=== PATIENT | male | born 1985 | race Caucasian/White ===

== ENCOUNTER 2023-08-01 12:28 | Inpatient (IN) | payer MEDICAID, OTHER ==
[~2023-08-01] VITALS: Ht 185.4 cm; Wt 73.7 kg
[2023-08-01] MEDS: SODIUM CHLORIDE 0.9% 1,000 ML IV ONE ×2 (13:15→22:00)
[2023-08-01 13:51] LABS: Alanine Aminotransferase 20 U/L (7-40); Alkaline Phosphatase 68 U/L (46-116); Anion Gap 11 (5-15); Aspartate Aminotransferase 13 U/L (13-40); BUN/Creatinine Ratio 14.2 (10.0-20.0); Bilirubin, Total 0.6 mg/dL (0.2-1.0); Blood Urea Nitrogen 15 mg/dL (9-23); Calcium 10.1 mg/dL (8.7-10.4); Carbon Dioxide 23 mmol/L (20-30); Chloride 104 mmol/L (98-107); Glucose 88 mg/dL (74-106); Potassium 4.3 mmol/L (3.5-5.1); Sodium 138 mmol/L (136-145); Total Protein 7.4 g/dL (5.7-8.2)
[2023-08-01 13:52] LABS: Basophils # (auto) 0 10 ^3/uL (0-0.2); Basophils % (auto) 0.3 % (0.0-2.0); Eosinophils # (auto) 0.1 10 ^3/uL (0-0.8); Eosinophils % (auto) 0.5 % (0.0-7.0); Hematocrit 47.3 % (41.0-53.0); Hemoglobin 16.1 g/dL (13.5-17.5); Lymphocytes # (auto) 1.4 10 ^3/uL (0.4-5.4); Lymphocytes % (auto) 12.4 % (10.0-50.0); Mean Corpuscular Volume 90.9 fL (80.0-100.0); Monocytes # (auto) 0.9 10 ^3/uL (0-1.3); Monocytes % (auto) 8.2 % (0.0-12.0); Neutrophils # (auto) 8.6 10 ^3/uL (1.6-8.6); Neutrophils % (auto) 78.6 % (37.0-80.0); Red Blood Cells 5.21 10^6/uL (4.5-5.90); Red Cell Distribution Width 13.2 % (11.8-14.3)
[2023-08-01] MEDS: ONDANSETRON HCL 4 MG/2 ML VIAL IV ONE (21:58)
[2023-08-01 22:08] LABS: Amphetamine Screen, Urine Neg (NEGATIVE); Barbiturate Scree,Urine Neg (NEGATIVE); Benzodiazephine Screen, Urine Neg (NEGATIVE); Cannabinoid Screen, Urine Pos (NEGATIVE); Cocaine Screen, Urine Neg (NEGATIVE); Opiate Scree,Urine Neg (NEGATIVE); Phencyclidine Screen, Urine Neg (NEGATIVE)
[2023-08-01] MEDS ORDERED: ACETAMINOPHEN 325 MG TAB PO PRN (23:00)
[2023-08-01] MEDS: SODIUM CHLORIDE 0.9% 1,000 ML IV SCH (23:00)
[2023-08-01] MEDS ORDERED: DOCUSATE SOD 100 MG CAP PO PRN (23:00)
[2023-08-02] MEDS ORDERED: MORPHINE SULFATE INJ 2 MG/ml SYRG IV PRN
[2023-08-02] MEDS ORDERED: NITROGLYCERIN 0.4 MG SL TAB SL PRN
[2023-08-02] MEDS: MORPHINE SULFATE INJ 2 MG/ml SYRG IV PRN (00:46)
[2023-08-02] MEDS: MORPHINE SULFATE 4 MG/ML SYR/VIAL IV ONE (00:47)
[2023-08-02] MEDS: DONNATAL 5ml ORAL Elix (BELLADONNA ALK-PHENOBARB) PO ONE (04:30)
[2023-08-02] MEDS: MAALOX PLUS or MAALOX 30 ML PO ONE (04:30)
[2023-08-02] MEDS: LIDOCAINE VISCOUS 2% 15ML UD PO ONE (04:30)
[2023-08-02 04:47] LABS: Alanine Aminotransferase 17 U/L (7-40); Albumin 4.3 g/dL (3.2-4.8); Alkaline Phosphatase 57 U/L (46-116); Anion Gap 9 (5-15); Aspartate Aminotransferase 11 U/L (13-40); BUN/Creatinine Ratio 11.2 (10.0-20.0); Bilirubin, Total 0.6 mg/dL (0.2-1.0); Blood Urea Nitrogen 11 mg/dL (9-23); Calcium 9.1 mg/dL (8.7-10.4); Carbon Dioxide 25 mmol/L (20-30); Chloride 108 mmol/L (98-107); Glucose 99 mg/dL (74-106); Potassium 4.4 mmol/L (3.5-5.1); Sodium 142 mmol/L (136-145); Total Protein 6.5 g/dL (5.7-8.2)
[2023-08-02 04:52] LABS: Basophils # (auto) 0 10 ^3/uL (0-0.2); Basophils % (auto) 0.4 % (0.0-2.0); Eosinophils # (auto) 0.1 10 ^3/uL (0-0.8); Eosinophils % (auto) 1.8 % (0.0-7.0); Hematocrit 42.1 % (41.0-53.0); Hemoglobin 14.6 g/dL (13.5-17.5); Lymphocytes # (auto) 1.7 10 ^3/uL (0.4-5.4); Lymphocytes % (auto) 21.2 % (10.0-50.0); Mean Corpuscular Hemoglobin 31.5 pg (28.0-32.0); Mean Corpuscular Hgb Conc. 34.6 g/dL (32.0-36.0); Monocytes # (auto) 0.9 10 ^3/uL (0-1.3); Monocytes % (auto) 11.3 % (0.0-12.0); Neutrophils # (auto) 5.1 10 ^3/uL (1.6-8.6); Neutrophils % (auto) 65.3 % (37.0-80.0); Nucleated Red Blood Cells % 0.1 %; Red Blood Cells 4.62 10^6/uL (4.5-5.90); Red Cell Distribution Width 13.2 % (11.8-14.3); White Blood Cell 7.8 10^3/uL (4.4-10.8)
[2023-08-02 08:43] VITALS: BP 103/55; PULSE 68; RESP 18; TEMP 98.2; O2SAT 98
[2023-08-02] MEDS: ONDANSETRON HCL 4 MG/2 ML VIAL IV PRN (08:49)
[2023-08-02 09:00] VITALS: BP 103/55; PULSE 68; RESP 18; TEMP 98.2; O2SAT 98
[2023-08-02] MEDS: levoFLOXacin 500MG 100 ML IV SCH (12:39)
[2023-08-02] MEDS ORDERED: TRAZ-228 PO (12:40)
[2023-08-02] MEDS ORDERED: PROM25TA10 PO (12:40)
[2023-08-02] MEDS ORDERED: PANT40TA2 PO (12:40)
[2023-08-02] MEDS ORDERED: LORA-1121 PO (12:40)
[2023-08-02 13:00] VITALS: BP 100/48; PULSE 56; RESP 15; TEMP 98.2; O2SAT 98
[2023-08-02] MEDS: metroNIDAZOLE 500MG/100ML 100 ML IV SCH (14:21)
[2023-08-02 17:00] VITALS: BP 107/57; PULSE 71; RESP 17; TEMP 98; O2SAT 98
[2023-08-02] MEDS: HYDROcodone-ACET 5/325MG TAB PO PRN (20:30)
[2023-08-02 21:00] VITALS: BP 99/62; PULSE 56; RESP 18; TEMP 98.1; O2SAT 99
[2023-08-03] VITALS (7 sets, daily range): BP systolic 104–133; BP diastolic 7–90; PULSE 57–72; RESP 18–23; TEMP 97.1–99.1; O2SAT 90–100
[2023-08-03 06:26] LABS: Anion Gap 8 (5-15); Carbon Dioxide 25 mmol/L (20-30); Chloride 107 mmol/L (98-107); Potassium 4.5 mmol/L (3.5-5.1); Sodium 140 mmol/L (136-145)
[2023-08-03 06:27] LABS: Calcium 9.3 mg/dL (8.7-10.4)
[2023-08-03 06:31] LABS: Basophils # (auto) 0 10 ^3/uL (0-0.2); Basophils % (auto) 0.6 % (0.0-2.0); Eosinophils # (auto) 0.3 10 ^3/uL (0-0.8); Hematocrit 43.8 % (41.0-53.0); Hemoglobin 15.1 g/dL (13.5-17.5); Lymphocytes # (auto) 1.7 10 ^3/uL (0.4-5.4); Lymphocytes % (auto) 22.7 % (10.0-50.0); Mean Corpuscular Hemoglobin 31.5 pg (28.0-32.0); Mean Corpuscular Hgb Conc. 34.6 g/dL (32.0-36.0); Mean Corpuscular Volume 91.1 fL (80.0-100.0); Neutrophils # (auto) 4.5 10 ^3/uL (1.6-8.6); Neutrophils % (auto) 59.7 % (37.0-80.0); Nucleated Red Blood Cells % 0.2 %; Red Blood Cells 4.81 10^6/uL (4.5-5.90); Red Cell Distribution Width 13.1 % (11.8-14.3); White Blood Cell 7.6 10^3/uL (4.4-10.8)
[2023-08-03 06:33] LABS: BUN/Creatinine Ratio 6.4 (10.0-20.0); Blood Urea Nitrogen 6 mg/dL (9-23); Glucose 83 mg/dL (74-106)
[2023-08-03] MEDS: LORazepam 0.5 MG TAB PO PRN (11:33)
[2023-08-03] MEDS ORDERED: MAALOX PLUS or MAALOX 30 ML PO PRN (14:30)
[2023-08-03] MEDS: MAALOX PLUS or MAALOX 30 ML PO ONE (14:45)
[2023-08-03] MEDS: PANTOPRAZOLE 40 MG TAB PO ONE (14:45)
[2023-08-04] VITALS (9 sets, daily range): BP systolic 91–106; BP diastolic 51–59; PULSE 54–65; RESP 18–20; TEMP 97.4–97.9; O2SAT 97–100
[2023-08-04 06:07] LABS: Basophils # (auto) 0 10 ^3/uL (0-0.2); Basophils % (auto) 0.6 % (0.0-2.0); Eosinophils # (auto) 0.3 10 ^3/uL (0-0.8); Eosinophils % (auto) 4.5 % (0.0-7.0); Hemoglobin 14.3 g/dL (13.5-17.5); Lymphocytes # (auto) 1.7 10 ^3/uL (0.4-5.4); Lymphocytes % (auto) 29.3 % (10.0-50.0); Mean Corpuscular Hemoglobin 30.8 pg (28.0-32.0); Mean Corpuscular Volume 90.4 fL (80.0-100.0); Monocytes # (auto) 0.9 10 ^3/uL (0-1.3); Monocytes % (auto) 15.3 % (0.0-12.0); Neutrophils # (auto) 2.9 10 ^3/uL (1.6-8.6); Neutrophils % (auto) 50.3 % (37.0-80.0); Nucleated Red Blood Cells % 0.1 %; Red Blood Cells 4.64 10^6/uL (4.5-5.90); Red Cell Distribution Width 12.7 % (11.8-14.3); White Blood Cell 5.8 10^3/uL (4.4-10.8)
[2023-08-04 06:12] LABS: Chloride 107 mmol/L (98-107); Potassium 3.8 mmol/L (3.5-5.1); Sodium 139 mmol/L (136-145)
[2023-08-04 06:13] LABS: Anion Gap 7 (5-15); Carbon Dioxide 25 mmol/L (20-30)
[2023-08-04 06:18] LABS: BUN/Creatinine Ratio 6.1 (10.0-20.0); Blood Urea Nitrogen 7 mg/dL (9-23); Glucose 89 mg/dL (74-106)
[2023-08-04] MEDS: KETOROLAC TROMETH 30 MG/ML 1ML VIAL IV PRN (10:33)
[2023-08-04] MEDS: PANTOPRAZOLE 40 MG TAB PO SCH (10:33)
[2023-08-05 00:54] VITALS: BP 97/56; PULSE 50; RESP 16; TEMP 97.5; O2SAT 99
[2023-08-05 05:00] VITALS: BP 95/64; PULSE 50; RESP 19; TEMP 97.5; O2SAT 99
[2023-08-05 06:04] LABS: Chloride 110 mmol/L (98-107); Potassium 4.3 mmol/L (3.5-5.1); Sodium 141 mmol/L (136-145)
[2023-08-05 06:05] LABS: Anion Gap 4 (5-15); Calcium 8.7 mg/dL (8.5-10.1); Carbon Dioxide 27 mmol/L (20-30)
[2023-08-05 06:08] LABS: Basophils # (auto) 0.1 10 ^3/uL (0-0.2); Basophils % (auto) 0.9 % (0.0-2.0); Eosinophils # (auto) 0.3 10 ^3/uL (0-0.8); Eosinophils % (auto) 5.4 % (0.0-7.0); Hematocrit 40.5 % (41.0-53.0); Hemoglobin 13.8 g/dL (13.5-17.5); Lymphocytes # (auto) 1.7 10 ^3/uL (0.4-5.4); Lymphocytes % (auto) 28.8 % (10.0-50.0); Mean Corpuscular Hemoglobin 30.9 pg (28.0-32.0); Mean Corpuscular Volume 90.7 fL (80.0-100.0); Monocytes # (auto) 0.8 10 ^3/uL (0-1.3); Monocytes % (auto) 13.3 % (0.0-12.0); Neutrophils # (auto) 3.1 10 ^3/uL (1.6-8.6); Neutrophils % (auto) 51.6 % (37.0-80.0); Red Blood Cells 4.46 10^6/uL (4.5-5.90)
[2023-08-05 06:10] LABS: BUN/Creatinine Ratio 7.3 (10.0-20.0); Blood Urea Nitrogen 8 mg/dL (9-23); Glucose 97 mg/dL (74-106)
[2023-08-05 08:00] VITALS: BP 100/58; PULSE 68; RESP 16; TEMP 97.5; O2SAT 98
[2023-08-05 09:00] VITALS: BP 100/58; PULSE 68; RESP 16; TEMP 97.5; O2SAT 98
[2023-08-05] MEDS ORDERED: METR-344 PO (10:23)
[2023-08-05] MEDS ORDERED: LEVO500T91 PO (10:23)
[2023-08-05] MEDS ORDERED: TRAZ-181 PO (12:10)
[2023-08-05] MEDS ORDERED: TRAM50TA2 PO (12:12)
[2023-08-05 13:00] VITALS: BP 123/70; PULSE 86; RESP 20; TEMP 97.3; O2SAT 100
[2023-08-05 13:02] VITALS: BP 123/70; PULSE 86; RESP 20; TEMP 97.3; O2SAT 100
== END 2023-08-05 13:30 | disposition home or self-care (01) | DRG 249 ==
LOC: ER 12:28 → OVERFLOW 23:58 → CENTRAL 08-02 08:16
PROVIDERS: ADMIT Internal Medicine; ATTEND Internal Medicine
DX: K52.9 Noninfective gastroenteritis and colitis, unspecified (principal); F17.200 Nicotine dependence, unspecified, uncomplicated; N40.0 Benign prostatic hyperplasia without lower urinary tract symptoms; Z80.8 Family history of malignant neoplasm of other organs or systems; Z82.49 Family history of ischemic heart disease and other diseases of the circulatory system; Z82.62 Family history of osteoporosis; Z83.3 Family history of diabetes mellitus; Z88.2 Allergy status to sulfonamides; Z79.899 Other long term (current) drug therapy
CPT/HCPCS: 36415; 74176; 80048; 80053; 80307; 83690; 85025; 87493; 96361; 96374; G0378; J1885; J1956; J2405; J3490